=== PATIENT | female | born 1990 | race Caucasian/White ===

== ENCOUNTER 2017-04-21 17:40 | Emergency (ER) | payer BC ==
[2017-04-21 18:10] VITALS: BP 150/96
--- NOTE | 2017-04-21 18:31 | UC ---
Eye Complaint HPI - HPI Summary HPI Summary: Patient presents with complaint of two week onset redness, and irritation of the left eye.It started while she was on a plane, and her eye felt dry and began t fell irritated. She removed her contacts and since then hasn't worn them. She denies eye pain, visual changes, or lid swelling. Due to the fact that is lasted so long she came to have it evaluated. - History of Current Complaint Chief Complaint: UCEye Stated Complaint: EYE IRRITATION Time Seen by Provider: 04/21/17 18:17 Hx Obtained From: Patient Hx Last Menstrual Period: 2 wks ago ?: No Onset/Duration: Gradual Onset Timing: Weeks Severity Initially: Moderate Severity Currently: Moderate Aggravating Factor(s): Light, Contact Lens, Blinking Alleviating Factor(s): Nothing Related History: Other - dry eyes - Risk Factors Penetrating Injury Risk Factor: Negative Acute Glaucoma Risk Factors: Negative Optic Artery Occlusion Risk Factors: Negative - Allergies/Home Medications Allergies/Adverse Reactions: Allergies Allergy/AdvReac Type Severity Reaction Status Date / Time Sulfa Antibiotics Allergy Rash Verified 04/21/17 18:10 Home Medications: Home Medications Control Pill ? Name 04/21/17 [History] PMH/Surg Hx/FS Hx/Imm Hx Previously Healthy: Yes - Surgical History Surgical History: None - Family History Known Family History: Positive: None - Social History Alcohol Use: Occasionally Substance Use Type: None Smoking Status (MU): Never Smoked Tobacco Review of Systems Eyes: Eye Redness - left eye, lateral aspect only. no tearing, drainage, lid swelling note. All Other Systems Reviewed And Are Negative: Yes Physical Exam Triage Information Reviewed: Yes Appearance: Well-Appearing Vital Signs: Initial Vital Signs Temp 97.9 F 04/21/17 18:07 Pulse 78 04/21/17 18:07 Resp 12 04/21/17 18:07 BP 150/96 04/21/17 18:07 Pulse Ox 100 04/21/17 18:07 Vital Signs Reviewed: Yes Eyes: Positive: Other: - left eye:conjunctiva lateral aspect swollen, injected, no tearing, drainage, lid swelling noted. Neck exam: Normal Respiratory Exam: Normal Eye Complaint Course/Dx - Course Course Of Treatment: Patient presents with two week onset left eye redness, and a sensation of dryness and/or irritation. She has removed her contact lenses, and has been putting natural tears in her eyes with no improvment. The clinical findings I feel are consistent with chemosis, and most likely caused from irritation of dry eyes. I am going to RX polymyxin eye drops and have referred her to Dr. Orr for follow up, I have asked her to call tomorrow for an appointment. She verbalized understanding and was in agreement of the discharge plan. - Differential Dx/Diagnosis Differential Diagnosis/HQI/PQRI: Other - chemosis conjunctivitis Provider Diagnoses: chemosis. conjunctivitis Discharge - Discharge Plan Condition: Stable Disposition: HOME Prescriptions: Polymyx/Trimethoprim OPTH* [Polytrim OPHTH*] 1 drop LEFT EYE Q3H #1 btl Patient Education Materials: Conjunctivitis (ED) Referrals: No Primary Care [facility] [Primary Care Provider] - Brett Wen MD [Medical Doctor] -
== END 2017-04-21 18:30 | disposition home or self-care (01) ==
LOC: UCEAST 17:40
DX: H11.422 Conjunctival edema, left eye (principal); H10.9 Unspecified conjunctivitis
CPT/HCPCS: 99212; G0463

== ENCOUNTER 2018-11-05 20:25 | Emergency (ER) | payer BC ==
--- NOTE | 2018-11-05 20:30 | UC ---
Respiratory Complaint HPI - HPI Summary HPI Summary: 28 yo female presents with SOB. She tells me that last night she spontaneously developed shortness of breath and dry coughing. Today is much worse and getting worse throughout the day. Painful to take a deep breath. She also noticed that her heart rate has been elevated (>100). 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 No recent illness, recent travel, smoking, cancer, or hx of blood clots. Denies any PMHx. No hx of asthma. No calf pain. - History of Current Complaint Stated Complaint: SOB Time Seen by Provider: 11/05/18 20:26 Hx Obtained From: Patient Hx Last Menstrual Period: 2 wks ago Onset/Duration: Sudden Onset Severity Currently: None Character: Cough: Nonproductive - Allergies/Home Medications Allergies/Adverse Reactions: Allergies Allergy/AdvReac Type Severity Reaction Status Date / Time Sulfa (Sulfonamide Allergy Rash Verified 11/05/18 20:34 Antibiotics) PMH/Surg Hx/FS Hx/Imm Hx - Additional Past Medical History Additional PMH: None - Surgical History Surgical History: None - Family History Known Family History: Positive: None - Social History Occupation: Employed Full-time Lives: With Family Alcohol Use: Occasionally Substance Use Type: None Smoking Status (MU): Never Smoked Tobacco Review of Systems All Other Systems Reviewed And Are Negative: Yes Constitutional: Positive: Negative Skin: Positive: Negative Eyes: Positive: Negative ENT: Positive: Negative Respiratory: Positive: Shortness Of Breath, Cough Cardiovascular: Positive: Negative Gastrointestinal: Positive: Negative Neurovascular: Positive: Negative Neurological: Positive: Negative Psychological: Positive: Negative Physical Exam - Summary Physical Exam Summary: GENERAL: Thin. Increased work of breathing. SKIN: No rashes, sores, lesions, or open wounds. HEENT: Head: AT/NC Eyes: EOM intact. Conjunctiva clear without inflammation or discharge. Ears: Hearing grossly normal. TMs intact, no bulging, erythema, or edema. Nose: Nasal mucosa pink and moist. NTTP maxillary and frontal sinus. Throat: Posterior oropharynx without exudates, erythema, or tonsillar enlargement. Uvula midline. NECK: Supple. Nontender. No lymphadenopathy. CHEST: CTAB. No r/r/w. Tachypneic. CV: Tachycardic. Without m/r/g. Pulses intact. Cap refill <2seconds NEURO: Alert. PSYCH: Age appropriate behavior. Triage Information Reviewed: Yes Vital Signs: Vital Signs: Temp Pulse Resp BP Pulse Ox 98.2 F 132 30 152/99 99 11/05/18 20:30 11/05/18 20:30 11/05/18 20:30 11/05/18 20:30 11/05/18 20:30 Vital Signs Reviewed: Yes Re-Evaluation - Re-Evaluation First Eval Re-Evaluation Time: 21:08 Change: Unchanged Comment: Unchanged s/p duoneb Respiratory Course/Dx - Course Course Of Treatment: CXR: No radiologist reading after 1800, therefore wet read by myself is negative for PNA or pneumothorax. EKG: Tachycardia with prolonged QT and prominent p waves. No ST changes as read by Dr. Ocampo. Duoneb: No change s/p. Placed on 2L O2 for comfort and no change in rate or work of breathing. Discussed with pt and her my suspicion for a PE at this time. Her only risk factor is her OBC, but her failure of treatment here and her presentation are concerning for such. Advised transfer to ED by ambulance and they were agreeable to this. Pt left in stable condition via EMS. - Differential Dx/Diagnosis Provider Diagnosis: SOB (shortness of breath), Dyspnea, Tachycardia Discharge - Sign-Out/Discharge Documenting (check all that apply): Patient Departure All imaging exams completed and their final reports reviewed: No - Discharge Plan Condition: Stable Disposition: TRANS HIGHER LVL OF CARE FAC Referrals: No Primary Care Phys,NOPCP [Primary Care Provider] - - Billing Disposition and Condition Condition: STABLE Disposition: Trans Higher Lvl of Care Fac
[2018-11-05] MEDS ORDERED: Albuterol/Ipratropium NEB.SOL* Albuterol 2.5 MG/Ipratropium 0.5 MG 3 ML INH ONE (20:32)
[2018-11-05 21:02] VITALS: BP 152/99
[2018-11-05] MEDS ORDERED: Ondansetron ODT TAB* 4 MG SL ONE (21:15)
[2018-11-05] MEDS ORDERED: Ondansetron ODT TAB* 4 MG ONE (21:16)
--- NOTE | 2018-11-06 13:01 | UC ---
- Progress Note Progress Note: CXR READ UNREMARKABLE. NO CHANGE IN MGMT Re-Evaluation - Re-Evaluation First Eval Re-Evaluation Time: 21:08 Change: Unchanged Comment: Unchanged s/p duoneb Course/Dx - Diagnoses Provider Diagnoses: SOB (shortness of breath), Dyspnea, Tachycardia Discharge - Sign-Out/Discharge Documenting (check all that apply): Post-Discharge Follow Up All imaging exams completed and their final reports reviewed: Yes - Discharge Plan Condition: Stable Disposition: TRANS HIGHER LVL OF CARE FAC Referrals: No Primary Care Phys,NOPCP [Primary Care Provider] - - Billing Disposition and Condition Condition: STABLE Disposition: Trans Higher Lvl of Care Fac
== END 2018-11-05 21:25 | disposition short-term general hospital (02) ==
LOC: UCEAST 20:25
DX: R06.02 Shortness of breath (principal); R00.0 Tachycardia, unspecified; Z88.2 Allergy status to sulfonamides
CPT/HCPCS: 71046; 99213; A9270-GY; G0463

== ENCOUNTER 2018-11-05 21:44 | Inpatient (IN) | payer BC ==
[2018-11-05] MEDS ORDERED: Metoclopramide IV* 5 MG/ML 2 ML VIAL IV ONE (22:10)
[2018-11-05] MEDS ORDERED: NS 0.9% 1000 ML** 1,000 ML IV ONE ×2 (22:10→23:06)
[2018-11-05 22:37] LABS: Hematocrit 54 % (35-47); Hemoglobin 17.4 g/dl (12.0-16.0); Mean Corpuscular HGB Conc 32 g/dl (31-36); Mean Corpuscular Hemoglobin 35 pg (27-31); Mean Corpuscular Volume 108 fL (80-97); Platelet Count 325 10^3/ul (150-450); Red Blood Count 5.03 10^6/ul (4.00-5.40); Red Cell Distribution Width 15 % (10.5-15); White Blood Count 14.9 10^3/ul (3.5-10.8)
[2018-11-05 22:45] LABS: INR 0.77 (0.77-1.02)
[2018-11-05 22:47] LABS: ALT 16 U/L (7-52); Albumin/Globulin Ratio 1.6 (1-3); Alkaline Phosphatase 95 U/L (34-104); BUN/Creatinine Ratio 10.1 (8-20); Blood Urea Nitrogen 12 mg/dL (6-24); C Reactive Protein 4.62 mg/L (<8.01); Calcium 8.8 mg/dL (8.6-10.3); Chloride 107 mmol/L (101-111); EGFR African American 65.8 (>60); EGFR Non-African American 54.4 (>60); Globulin 3.2 g/dL (2-4); Glucose 321 mg/dL (70-100); Sodium 134 mmol/L (135-145); Total Protein 8.2 g/dL (6.4-8.9)
[2018-11-05 22:51] LABS: CO2 Carbon Dioxide < 7 mmol/L (22-32)
[2018-11-05 22:53] LABS: HCG Pregnancy < 0.60 mIU/mL
[2018-11-05 23:00] LABS: Immature Granulocytes 4 % (0-9); Lymphocytes % 18 %; Metamyelocytes % 3 % (0-2); Monocytes % 13 %; Myelocytes % 1 % (0-1); Neutrophil % 64 %
[2018-11-05 23:01] LABS: Polychromasia 1+
[2018-11-05 23:02] LABS: ABS Basophils 0 10^3/ul (0-0.2); ABS Eosinophils 0.1 10^3/ul (0-0.6); ABS Lymphocytes 3.2 10^3/ul (1.0-4.8); ABS Monocytes 1.7 10^3/ul (0-0.8); ABS Neutrophils 9.8 10^3/ul (1.5-7.7); ABS Nucleated RBC 0 10^3/ul
[2018-11-05 23:18] LABS: TSH (Thyroid Stimulating Horm) 3.09 mcIU/mL (0.34-5.60)
--- NOTE | 2018-11-05 23:24 | ED ---
Progress - Progress Note Progress Note: Pt is a 28 y/o F. The pt has no PMHx or pertinent FHx. The pt complains of difficulty breathing and nausea for 1.5 days with decreased PO intake. She was found tachypnic and tachycardic in the ED. The pt's bloodwork is consistent with DKA, and her blood sugar is 321. Pt given IV fluids and insulin drip. Pt will not get bolus insulin because his blood sugar is not too elevated. The dx will be DKA and the pt will be admitted to the ICU. Course/Dx - Course Course Of Treatment: Pt is a 28 y/o F. The pt has no PMHx or pertinent FHx. The pt complains of difficulty breathing and nausea for 1.5 days with decreased PO intake. She was found tachypnic and tachycardic in the ED. The pt's bloodwork is consistent with DKA, and her blood sugar is 321. Pt given IV fluids and insulin drip. Pt will not get bolus insulin because his blood sugar is not too elevated. The dx will be DKA and the pt will be admitted to the ICU. - Diagnoses Provider Diagnoses: DKA (diabetic ketoacidoses) Discharge - Sign-Out/Discharge Documenting (check all that apply): Patient Departure - Discharge Plan Condition: Stable Disposition: ADMITTED TO [facility] Referrals: [facility] [Outside] - Attestation Statements Document Initiated by Gemini: Yes Documenting Scribe: Linh Crowley Provider For Whom Gemini is Documenting (Include Credential): Sheryl Calzada MD. Scribe Attestation: Linh Robertson, ernsted for Shreyl Calzada MD. on 11/05/18 at [id number]. Status of Scribe Document: Ready
[2018-11-05] MEDS ORDERED: Insulin IVPB 100 units/100 ml 100 UNITS/100 ML UNIT IVPB SCH (23:45)
[2018-11-05 23:48] LABS: Magnesium 2.1 mg/dL (1.9-2.7); Potassium Redraw 3.7 mmol/L (3.5-5.0)
[2018-11-05] MEDS ORDERED: KCL 10 MEQ/50 ML IVPREMIX* 10 MEQ/50 ML BAG IV ONE (23:51)
[2018-11-05 23:54] LABS: Phosphorus 3.3 mg/dL (2.5-5.0)
[2018-11-06] MEDS ORDERED: NS 0.9% w/ 40 Meq KCL 1000 ML* 1,000 ML IV SCH (01:00)
[2018-11-06] MEDS ORDERED: Insulin IVPB 100 units/100 ml 100 UNITS/100 ML UNIT IVPB SCH ×2 (01:00→01:25)
--- NOTE | 2018-11-06 01:32 | ED ---
Shortness of Breath - HPI Summary HPI Summary: Patient complains of shortness of breath and chest tightness, nasal congestion, frontal headache, persistent nausea with one episode of vomiting 2 days. Patient sent from convenient care for further evaluation for possible PE. Patient chest x-ray negative at convenient care. Nebulizers 2 provided no relief at convenient care. Patient was also given Zofran which helped to control some of the nausea. Patient denies fever, cough, sore throat, neck tightness, abdominal pain, change in urine, vaginal symptoms, change in BM. Medical history is none. Patient taking same OCP 4 years. Denies history of blood clots, recent history of long travel, , cancer, recent immobility , recent surgery or trauma. Nonsmoker. Denies EtOH and recreational drug use. - History of Current Complaint Chief Complaint: EDShortnessOfBreath Time Seen by Provider: 11/05/18 21:53 Hx Obtained From: Patient Onset/Duration: Gradual Onset, Lasting Days Current Severity: Moderate Alleviating Factors: Nothing Associated Signs & Symptoms: Nasal Congestion - Allergy/Home Medications Allergies/Adverse Reactions: Allergies Allergy/AdvReac Type Severity Reaction Status Date / Time Sulfa (Sulfonamide Allergy Rash Verified 11/05/18 20:34 Antibiotics) PMH/Surg Hx/FS Hx/Imm Hx Endocrine/Hematology History: Denies: Hx Anticoagulant Therapy Cardiovascular History: Denies: Hx Cardiac Arrest History: Denies: Hx Dialysis Musculoskeletal History: Denies: Hx Gout Sensory History: Denies: Hx Eye Injury Opthamlomology History: Denies: Hx Eye Prosthesis EENT History: Denies: Hx Deafness Neurological History: Denies: Hx Dementia Psychiatric History: Denies: Hx Autism Infectious Disease History: No Infectious Disease History: Denies: Traveled Outside the [place] in Last 30 Days - Family History Known Family History: Positive: None - Social History Alcohol Use: Occasionally Substance Use Type: Reports: None Smoking Status (MU): Never Smoked Tobacco Review of Systems Constitutional: Negative Eyes: Negative ENT: Negative Positive: Chest Pain Positive: Shortness Of Breath Positive: Vomiting, Nausea Genitourinary: Negative Musculoskeletal: Negative Skin: Negative Neurological: Negative Psychological: Normal All Other Systems Reviewed And Are Negative: Yes Physical Exam - Summary Physical Exam Summary: Patient tachycardic. Patient hyperventilating. Lung sounds clear to auscultation bilaterally. Abdomen soft nontender. Triage Information Reviewed: Yes Vital Signs On Initial Exam: Initial Vitals Resp 28 11/05/18 21:45 Vital Signs Reviewed: Yes Appearance: Positive: Well-Appearing Head/Face: Positive: Normal Head/Face Inspection Eyes: Positive: Normal ENT: Positive: Normal ENT inspection Neck: Positive: Supple Respiratory/Lung Sounds: Positive: Clear to Auscultation Cardiovascular: Positive: Tachycardia Abdomen Description: Positive: Nontender Musculoskeletal: Positive: Normal Neurological: Positive: Normal Psychiatric: Positive: Normal AVPU Assessment: Alert - Phoebe Coma Scale Best Eye Response: 4 - Spontaneous Best Motor Response: 6 - Obeys Commands Best Verbal Response: 5 - Oriented Coma Scale Total: 15 Diagnostics - Vital Signs Vital Signs Temp Pulse Resp BP Pulse Ox 11/06/18 00:28 109 28 100 11/06/18 00:17 106 26 154/104 100 11/06/18 00:00 110 22 100 11/05/18 23:47 106 28 155/101 100 11/05/18 23:17 115 27 166/115 100 11/05/18 23:00 112 39 100 11/05/18 22:47 121 27 147/107 85 11/05/18 22:23 111 26 159/116 100 11/05/18 22:00 113 50 100 11/05/18 21:59 111 100 11/05/18 21:50 97.9 F 116 28 172/120 99 11/05/18 21:47 112 172/120 100 11/05/18 21:45 28 - Laboratory Lab Results: Lab Results 11/05/18 11/05/18 11/05/18 Range/Units 21:57 22:19 22:20 WBC 14.9 H (3.5-10.8) 10^3/ul RBC 5.03 (4.00-5.40) 10^6/ul Hgb 17.4 H (12.0-16.0) g/dl Hct 54 H (35-47) % MCV 108 H (80-97) fL MCH 35 H (27-31) pg MCHC 32 (31-36) g/dl RDW 15 (10.5-15) % Plt Count 325 (150-450) 10^3/ul MPV 7.0 L (7.4-10.4) fL Neut % (Auto) Not Reportable Lymph % (Auto) Not Reportable Hinds % (Auto) Not Reportable Eos % (Auto) Not Reportable Baso % (Auto) Not Reportable Absolute Neuts (auto) 9.8 H (1.5-7.7) 10^3/ul Absolute Lymphs (auto) 3.2 (1.0-4.8) 10^3/ul Absolute Monos (auto) 1.7 H (0-0.8) 10^3/ul Absolute Eos (auto) 0.1 (0-0.6) 10^3/ul Absolute Basos (auto) 0 (0-0.2) 10^3/ul Absolute Nucleated RBC 0 10^3/ul Immature Gran % 4 (0-9) % Neutrophils % 64 % Lymphocytes % 18 % Monocytes % 13 % Basophils % 1 % Metamyelocytes % 3 H (0-2) % Myelocytes % 1 (0-1) % Nucleated RBC % Not Reportable Normal RBC Morphology Not Reportable Polychromasia 1+ INR (Anticoag Therapy) 0.77 (0.77-1.02) D-Dimer, Quantitative 336 H (Less Than 230) ng/mL ABG pH (7.35-7.45) ABG pCO2 (35-45) mmHg ABG pO2 (80-100) mmHg ABG HCO3 ABG O2 Saturation (94.0-98.0) % ABG Base Excess VBG pH (7.32-7.43) VBG pCO2 (41-51) mmHg VBG pO2 (35-45) mmHg VBG HCO3 VBG O2 Saturation (70-80) % VBG Base Excess Sodium (135-145) mmol/L Potassium Chloride (101-111) mmol/L Carbon Dioxide (22-32) mmol/L Anion Gap BUN (6-24) mg/dL Creatinine (0.51-0.95) mg/dL Est GFR ( Amer) (>60) Est GFR (Non-Af Amer) (>60) BUN/Creatinine Ratio (8-20) Glucose (70-100) mg/dL POC Glucose (mg/dL) 271 H (70-100) mg/dL Lactic Acid (0.5-2.0) mmol/L Calcium (8.6-10.3) mg/dL Phosphorus (2.5-5.0) mg/dL Magnesium (1.9-2.7) mg/dL Total Bilirubin (0.2-1.0) mg/dL AST ALT (7-52) U/L Alkaline Phosphatase (34-104) U/L Troponin I (<0.04) ng/mL C-Reactive Protein (<8.01) mg/L Total Protein (6.4-8.9) g/dL Albumin (3.2-5.2) g/dL Globulin (2-4) g/dL Albumin/Globulin Ratio (1-3) TSH (0.34-5.60) mcIU/mL Beta HCG, Quant mIU/mL 11/05/18 11/05/18 11/05/18 Range/Units 22:20 22:20 22:20 WBC (3.5-10.8) 10^3/ul RBC (4.00-5.40) 10^6/ul Hgb (12.0-16.0) g/dl Hct (35-47) % MCV (80-97) fL MCH (27-31) pg MCHC (31-36) g/dl RDW (10.5-15) % Plt Count (150-450) 10^3/ul MPV (7.4-10.4) fL Neut % (Auto) Lymph % (Auto) Hinds % (Auto) Eos % (Auto) Baso % (Auto) Absolute Neuts (auto) (1.5-7.7) 10^3/ul Absolute Lymphs (auto) (1.0-4.8) 10^3/ul Absolute Monos (auto) (0-0.8) 10^3/ul Absolute Eos (auto) (0-0.6) 10^3/ul Absolute Basos (auto) (0-0.2) 10^3/ul Absolute Nucleated RBC 10^3/ul Immature Gran % (0-9) % Neutrophils % % Lymphocytes % % Monocytes % % Basophils % % Metamyelocytes % (0-2) % Myelocytes % (0-1) % Nucleated RBC % Normal RBC Morphology Polychromasia INR (Anticoag Therapy) (0.77-1.02) D-Dimer, Quantitative (Less Than 230) ng/mL ABG pH (7.35-7.45) ABG pCO2 (35-45) mmHg ABG pO2 (80-100) mmHg ABG HCO3 ABG O2 Saturation (94.0-98.0) % ABG Base Excess VBG pH < 7.00 L (7.32-7.43) VBG pCO2 29 L (41-51) mmHg VBG pO2 < 38.0 (35-45) mmHg VBG HCO3 TNP VBG O2 Saturation 56.3 L (70-80) % VBG Base Excess TNP Sodium 134 L (135-145) mmol/L Potassium TNP Chloride 107 (101-111) mmol/L Carbon Dioxide < 7 L* (22-32) mmol/L Anion Gap Not Reportable BUN 12 (6-24) mg/dL Creatinine 1.19 H (0.51-0.95) mg/dL Est GFR ( Amer) 65.8 (>60) Est GFR (Non-Af Amer) 54.4 (>60) BUN/Creatinine Ratio 10.1 (8-20) Glucose 321 H (70-100) mg/dL POC Glucose (mg/dL) (70-100) mg/dL Lactic Acid 0.6 (0.5-2.0) mmol/L Calcium 8.8 (8.6-10.3) mg/dL Phosphorus (2.5-5.0) mg/dL Magnesium (1.9-2.7) mg/dL Total Bilirubin 0.40 (0.2-1.0) mg/dL AST TNP ALT 16 (7-52) U/L Alkaline Phosphatase 95 (34-104) U/L Troponin I 0.00 (<0.04) ng/mL C-Reactive Protein 4.62 (<8.01) mg/L Total Protein 8.2 (6.4-8.9) g/dL Albumin 5.0 (3.2-5.2) g/dL Globulin 3.2 (2-4) g/dL Albumin/Globulin Ratio 1.6 (1-3) TSH 3.09 (0.34-5.60) mcIU/mL Beta HCG, Quant < 0.60 mIU/mL 11/05/18 11/05/18 11/05/18 Range/Units 23:14 23:25 23:56 WBC (3.5-10.8) 10^3/ul RBC (4.00-5.40) 10^6/ul Hgb (12.0-16.0) g/dl Hct (35-47) % MCV (80-97) fL MCH (27-31) pg MCHC (31-36) g/dl RDW (10.5-15) % Plt Count (150-450) 10^3/ul MPV (7.4-10.4) fL Neut % (Auto) Lymph % (Auto) Hinds % (Auto) Eos % (Auto) Baso % (Auto) Absolute Neuts (auto) (1.5-7.7) 10^3/ul Absolute Lymphs (auto) (1.0-4.8) 10^3/ul Absolute Monos (auto) (0-0.8) 10^3/ul Absolute Eos (auto) (0-0.6) 10^3/ul Absolute Basos (auto) (0-0.2) 10^3/ul Absolute Nucleated RBC 10^3/ul Immature Gran % (0-9) % Neutrophils % % Lymphocytes % % Monocytes % % Basophils % % Metamyelocytes % (0-2) % Myelocytes % (0-1) % Nucleated RBC % Normal RBC Morphology Polychromasia INR (Anticoag Therapy) (0.77-1.02) D-Dimer, Quantitative (Less Than 230) ng/mL ABG pH < 7.00 L* (7.35-7.45) ABG pCO2 < 20 L (35-45) mmHg ABG pO2 160 H (80-100) mmHg ABG HCO3 TNP ABG O2 Saturation 98.9 H (94.0-98.0) % ABG Base Excess TNP VBG pH (7.32-7.43) VBG pCO2 (41-51) mmHg VBG pO2 (35-45) mmHg VBG HCO3 VBG O2 Saturation (70-80) % VBG Base Excess Sodium (135-145) mmol/L Potassium 3.7 Chloride (101-111) mmol/L Carbon Dioxide (22-32) mmol/L Anion Gap BUN (6-24) mg/dL Creatinine (0.51-0.95) mg/dL Est GFR ( Amer) (>60) Est GFR (Non-Af Amer) (>60) BUN/Creatinine Ratio (8-20) Glucose (70-100) mg/dL POC Glucose (mg/dL) 278 H (70-100) mg/dL Lactic Acid (0.5-2.0) mmol/L Calcium (8.6-10.3) mg/dL Phosphorus 3.3 (2.5-5.0) mg/dL Magnesium 2.1 (1.9-2.7) mg/dL Total Bilirubin (0.2-1.0) mg/dL AST 14 ALT (7-52) U/L Alkaline Phosphatase (34-104) U/L Troponin I 0.00 (<0.04) ng/mL C-Reactive Protein (<8.01) mg/L Total Protein (6.4-8.9) g/dL Albumin (3.2-5.2) g/dL Globulin (2-4) g/dL Albumin/Globulin Ratio (1-3) TSH (0.34-5.60) mcIU/mL Beta HCG, Quant mIU/mL Result Diagrams: 11/05/18 22:20 11/05/18 23:14 Lab Statement: Any lab studies that have been ordered have been reviewed, and results considered in the medical decision making process. Course/Dx - Course Course Of Treatment: Patient complains of shortness of breath and chest tightness, nasal congestion, frontal headache, persistent nausea with one episode of vomiting 2 days. Patient sent from convenient care for further evaluation for possible PE. Patient chest x-ray negative at convenient care. Nebulizers 2 provided no relief at convenient care. Patient was also given Zofran which helped to control some of the nausea. Patient denies fever, cough , sore throat, neck tightness, abdominal pain, change in urine, vaginal symptoms , change in BM. Medical history is none. Patient taking same OCP 4 years. Denies history of blood clots, recent history of long travel, , cancer , recent immobility, recent surgery or trauma. Nonsmoker. Denies EtOH and recreational drug use. Physical exam:Patient tachycardic. Patient hyperventilating. Lung sounds clear to auscultation bilaterally. Abdomen soft nontender. Patient tachycardic and tachypneic. WBC 14.9. D-dimer 336, however shortness of breath likely related to DKA rather than possible PE. CTA chest deferred. ABG pH less than 7. Carbon dioxide less than 7. BGL 321. Heart rate 116. Respiratory rate 25. Denies history of diabetes. Chest x-ray negative and convenient care. Pt is a 28 y/o F. The pt has no PMHx or pertinent FHx. The pt complains of difficulty breathing and nausea for 1.5 days with decreased PO intake. She was found tachypnic and tachycardic in the ED. The pt's bloodwork is consistent with DKA, and her blood sugar is 321. Pt given IV fluids and insulin drip. Pt will not get bolus insulin because his blood sugar is not too elevated. The dx will be DKA and the pt will be admitted to the ICU. - Diagnoses Provider Diagnoses: DKA (diabetic ketoacidoses) Discharge - Sign-Out/Discharge Documenting (check all that apply): Patient Departure Patient Received Moderate/Deep Sedation with Procedure: No - Discharge Plan Condition: Stable Disposition: ADMITTED TO [facility] - Billing Disposition and Condition Condition: STABLE Disposition: Admitted to [facility]
--- NOTE | 2018-11-06 02:24 | ADMNOTE ---
Subjective Date of Service: 11/06/18 Interval History: HISTORY AND PHYSICAL PCP: Georgie CC: dyspnea HPI: Patient is 28 year old with no PMH who was feeling well until after work about 36 hours [employer]. At that time, she felt short of breath. The dyspnea has progressed over the next 36 hours. In the last 24 hours she has had polyuria, polydipsia. She reports slow weight loss over the last 2 years, nothing acute. She feels fatigued, vomited once this morning. Denies fever, abdominal pain, dysuria. Family History: Findings - father with HTN, cousing w/ DM-1 Social History: Findings - , no children, works as PT at [employer] [place], no tobacco , rare alcohol, no drugs Past Medical History: Findings - No PMH, no PSH Review of Systems - Measurements Intake and Output: Intake and Output Last 24 Hours 11/03/18 11/04/18 11/05/18 11/06/18 06:59 06:59 06:59 06:59 Intake Total 1050 Balance 1050 Weight 58.967 kg Intake: IV Fluids 1050 - Review of Systems Constitutional Symptoms: Positive: Weight Loss, Fatigue Dermatology: Positive: Normal HEENT: Positive: Normal Eyes: Positive: Normal Thyroid: Positive: Normal Pulmonary: Positive: Shortness of Breath Negative: Cough Cardiology: Positive: Normal Negative: Edema Gastroenterology: Positive: Nausea, Vomiting Negative: Anorexia Genital - Urinary: Positive: Normal Genitourinay - Female: Positive: Menses Normal Musculoskeletal: Negative: Joint Pain Endocrinology: Positive: Normal Hematologic/Lymphatic: Positive: Anemia Neurology: Positive: Normal Psychiatry: Positive: Normal Objective Active Medications: Home medications: OCP only Vital Signs - 8 hr 11/05/18 11/05/18 11/05/18 21:45 21:47 21:50 Temperature 36.6 C Pulse Rate 112 116 Respiratory 28 28 Rate Blood Pressure 172/120 172/120 (mmHg) O2 Sat by Pulse 100 99 Oximetry 11/05/18 11/05/18 11/05/18 21:59 22:00 22:23 Temperature Pulse Rate 111 113 111 Respiratory 50 26 Rate Blood Pressure 159/116 (mmHg) O2 Sat by Pulse 100 100 100 Oximetry 11/05/18 11/05/18 11/05/18 22:47 23:00 23:17 Temperature Pulse Rate 121 112 115 Respiratory 27 39 27 Rate Blood Pressure 147/107 166/115 (mmHg) O2 Sat by Pulse 85 100 100 Oximetry 11/05/18 11/06/18 11/06/18 23:47 00:00 00:17 Temperature Pulse Rate 106 110 106 Respiratory 28 22 26 Rate Blood Pressure 155/101 154/104 (mmHg) O2 Sat by Pulse 100 100 100 Oximetry 11/06/18 11/06/18 11/06/18 00:28 00:47 01:00 Temperature Pulse Rate 109 103 103 Respiratory 28 20 22 Rate Blood Pressure 143/100 (mmHg) O2 Sat by Pulse 100 100 100 Oximetry Oxygen Devices in Use Now: Nasal Cannula Appearance: alert, weak appearing, Kussmaul breathing Eyes: No Scleral Icterus Ears/Nose/Mouth/Throat: NL Teeth, Lips, Gums Neck: NL Appearance and Movements; NL JVP Respiratory: Symmetrical Chest Expansion and Respiratory Effort, Clear to Auscultation Cardiovascular: NL Sounds; No Murmurs; No JVD Abdominal: NL Sounds; No Tenderness; No Distention Lymphatic: No Cervical Adenopathy Extremities: No Edema Skin: No Rash or Ulcers Neurological: Alert and Oriented x 3 Lines/Tubes/Other Access: Clean, Dry and Intact Peripheral IV Nutrition: Taking PO's Result Diagrams: 11/05/18 22:20 11/05/18 23:14 Additional Lab and Data: Laboratory Tests 11/05/18 11/05/18 11/05/18 22:19 22:20 22:20 Absolute Neuts (auto) 9.8 H Absolute Monos (auto) 1.7 H Metamyelocytes % 3 H INR (Anticoag Therapy) 0.77 D-Dimer, Quantitative 336 H ABG pH ABG pCO2 ABG pO2 ABG HCO3 ABG O2 Saturation Lactic Acid Phosphorus Magnesium Troponin I 0.00 C-Reactive Protein 4.62 Total Protein 8.2 Albumin 5.0 TSH 3.09 Beta HCG, Quant < 0.60 11/05/18 11/05/18 11/05/18 22:20 23:14 23:25 Absolute Neuts (auto) Absolute Monos (auto) Metamyelocytes % INR (Anticoag Therapy) D-Dimer, Quantitative ABG pH < 7.00 L* ABG pCO2 < 20 L ABG pO2 160 H ABG HCO3 TNP ABG O2 Saturation 98.9 H Lactic Acid 0.6 Phosphorus 3.3 Magnesium 2.1 Troponin I C-Reactive Protein Total Protein Albumin TSH Beta HCG, Quant Diagnostic Imaging: CXR: normal EKG Data: sinus tachy Assess/Plan/Problems-Billing Assessment: 28 year old with new onset Type 1 diabetes and DKA. - Patient Problems (1) Diabetic ketoacidosis, type I Current Visit: Yes Status: Acute Priority: High Code(s): E10.10 - TYPE 1 DIABETES MELLITUS WITH KETOACIDOSIS WITHOUT COMA SNOMED Code(s): 077645508 Comment: -Patient admitted to ICU on insulin drip -Will titrate insulin drip to FS in 150-250 range -Check FS every hour, BMP q4h -Add D5 once FS <250 -potassium already low, may lower further, aggressively supplemented -check UA once she voids, assess for resolution of ketones -Aggressive hydration, patient is very volume depleted (2) DVT prophylaxis Current Visit: Yes Status: Acute Priority: Low Code(s): IMJ7354 - SNOMED Code(s): 587115670 Comment: -low risk -SCDs Status and Disposition: inpatient, initially in ICU
[2018-11-06] MEDS: D5W NS 0.9% 20Meq KCL 1000 ML* 1,000 ML IV SCH ×2 (02:58→06:07)
[2018-11-06 03:04] LABS: BUN/Creatinine Ratio 12.4 (8-20); Blood Urea Nitrogen 13 mg/dL (6-24); Calcium 7.6 mg/dL (8.6-10.3); EGFR African American 76.1 (>60); EGFR Non-African American 62.9 (>60); Glucose 243 mg/dL (70-100); Sodium 134 mmol/L (135-145)
[2018-11-06 03:07] LABS: CO2 Carbon Dioxide < 7 mmol/L (22-32); Chloride 113 mmol/L (101-111)
[2018-11-06 04:32] LABS: Urine Appearance Clear; Urine Bacteria 1+ (Absent); Urine Bilirubin Negative (Negative); Urine Blood 2+ (Negative); Urine Color Straw; Urine Glucose 3+(>=500 mg/dL) (Negative); Urine Ketones 2+ (Negative); Urine Nitrite Negative (Negative); Urine Protein 1+(30 mg/dL) (Negative); Urine Red Blood Cell 3+(>10/hpf) (Absent); Urine Urobilinogen Negative (Negative); Urine White Blood Cell Absent (Absent)
[2018-11-06] MEDS: Ibuprofen TAB* 400 MG PO PRN ×2 (04:55→12:29)
[2018-11-06 06:33] LABS: Hematocrit 49 % (35-47); Hemoglobin 16.2 g/dl (12.0-16.0); Mean Corpuscular HGB Conc 33 g/dl (31-36); Mean Corpuscular Hemoglobin 34 pg (27-31); Mean Corpuscular Volume 105 fL (80-97); Platelet Count 228 10^3/ul (150-450); Red Blood Count 4.69 10^6/ul (4.00-5.40); Red Cell Distribution Width 14 % (10.5-15); White Blood Count 14.6 10^3/ul (3.5-10.8)
[2018-11-06 07:27] LABS: Lymphocytes % 14 %; Metamyelocytes % 2 % (0-2); Monocytes % 6 %; Neutrophil % 76 %
[2018-11-06 07:28] LABS: Immature Granulocytes 4 % (0-9)
[2018-11-06 07:29] LABS: ABS Neutrophils 11.7 10^3/ul (1.5-7.7)
[2018-11-06 08:16] LABS: BUN/Creatinine Ratio 11.2 (8-20); Blood Urea Nitrogen 11 mg/dL (6-24); Calcium 7.8 mg/dL (8.6-10.3); EGFR African American 82.4 (>60); EGFR Non-African American 68.1 (>60); Glucose 312 mg/dL (70-100); Potassium 4.1 mmol/L (3.5-5.0); Sodium 135 mmol/L (135-145)
[2018-11-06 08:21] LABS: CO2 Carbon Dioxide < 7 mmol/L (22-32); Chloride 115 mmol/L (101-111)
--- NOTE | 2018-11-06 08:55 | PN ---
Subjective Date of Service: 11/06/18 Interval History: Less SOB. Hungry. No pain, no new c/o. Family History: Findings - father with HTN, cousing w/ DM-1 Social History: Findings - , no children, works as PT at [employer] [place], no tobacco , rare alcohol, no drugs Past Medical History: Findings - No PMH, no PSH Objective Active Medications: Insulin Human Regular (Insulin Regular Iv Drip 1 Unit/Ml) 100 units in 100 mls @ 4.128 mls/hr IVPB .(as Initial Rate) [facility]; Protocol Last Admin: 11/06/18 02:58 Dose: 4.128 mls/hr Potassium Chloride/Dextrose (D5w Ns 0.9% 20meq Kcl 1000 Ml*) 1,000 mls @ 300 mls/hr IV PER RATE [facility] Last Admin: 11/06/18 06:07 Dose: 300 mls/hr Ibuprofen (Motrin Tab*) 400 mg PO Q6H PRN PRN Reason: HEADACHE/DISCOMFORT Last Admin: 11/06/18 04:55 Dose: 400 mg Vital Signs - 8 hr 11/06/18 11/06/18 11/06/18 01:00 01:17 01:55 Temperature Pulse Rate 103 109 Respiratory 22 24 24 Rate Blood Pressure 165/118 155/112 (mmHg) O2 Sat by Pulse 100 100 Oximetry 11/06/18 11/06/18 11/06/18 02:00 02:15 02:19 Temperature 96.4 F 97.4 F Pulse Rate 108 111 104 Respiratory 25 22 28 Rate Blood Pressure 157/108 159/110 165/118 (mmHg) O2 Sat by Pulse 100 100 100 Oximetry 11/06/18 11/06/18 11/06/18 02:30 02:45 03:00 Temperature Pulse Rate 104 104 103 Respiratory 25 25 23 Rate Blood Pressure 148/106 143/107 150/107 (mmHg) O2 Sat by Pulse 100 100 100 Oximetry 11/06/18 11/06/18 11/06/18 03:15 03:30 03:45 Temperature Pulse Rate 108 112 104 Respiratory 24 23 25 Rate Blood Pressure 147/105 141/109 139/96 (mmHg) O2 Sat by Pulse 100 100 100 Oximetry 11/06/18 11/06/18 11/06/18 04:00 04:15 04:30 Temperature 97.7 F Pulse Rate 105 113 106 Respiratory 21 18 23 Rate Blood Pressure 131/104 143/98 127/81 (mmHg) O2 Sat by Pulse 100 100 100 Oximetry 11/06/18 11/06/18 11/06/18 04:45 05:00 05:15 Temperature Pulse Rate 106 105 102 Respiratory 22 27 21 Rate Blood Pressure 124/92 138/90 122/88 (mmHg) O2 Sat by Pulse 100 100 100 Oximetry 11/06/18 11/06/18 11/06/18 05:30 05:45 06:00 Temperature Pulse Rate 105 100 101 Respiratory 26 34 30 Rate Blood Pressure 122/93 129/91 128/85 (mmHg) O2 Sat by Pulse 100 100 100 Oximetry 11/06/18 11/06/18 11/06/18 06:24 06:30 06:45 Temperature Pulse Rate 106 107 100 Respiratory 37 17 17 Rate Blood Pressure 130/88 128/82 118/84 (mmHg) O2 Sat by Pulse 100 100 99 Oximetry 11/06/18 11/06/18 11/06/18 07:00 07:01 07:15 Temperature Pulse Rate 95 96 90 Respiratory 20 19 22 Rate Blood Pressure 123/92 123/89 (mmHg) O2 Sat by Pulse 100 100 100 Oximetry 11/06/18 11/06/18 11/06/18 07:30 08:00 08:01 Temperature Pulse Rate 89 90 90 Respiratory 16 22 21 Rate Blood Pressure 117/88 121/92 (mmHg) O2 Sat by Pulse 100 98 100 Oximetry Oxygen Devices in Use Now: Nasal Cannula Appearance: Alert, partly up in ICU bed. In good spirits. Somewhat tachypneic at rest but otherwise looks comfortable. Eyes: No Scleral Icterus Respiratory: Symmetrical Chest Expansion and Respiratory Effort, Clear to Percussion, - - somewhat tachypneic in bed Cardiovascular: NL Sounds; No Murmurs; No JVD, RRR, No Edema, - Extremities: No Edema, No Clubbing, Cyanosis Skin: No Rash or Ulcers, No Nodules or Sclerosis Neurological: Alert and Oriented x 3, NL Sensation Result Diagrams: 11/06/18 06:24 11/06/18 06:24 Additional Lab and Data: Laboratory Tests 11/05/18 11/05/18 11/05/18 22:19 22:20 22:20 Absolute Neuts (auto) 9.8 H Absolute Monos (auto) 1.7 H Metamyelocytes % 3 H INR (Anticoag Therapy) 0.77 D-Dimer, Quantitative 336 H ABG pH ABG pCO2 ABG pO2 ABG HCO3 ABG O2 Saturation Lactic Acid Phosphorus Magnesium Troponin I 0.00 C-Reactive Protein 4.62 Total Protein 8.2 Albumin 5.0 TSH 3.09 Beta HCG, Quant < 0.60 11/05/18 11/05/18 11/05/18 22:20 23:14 23:25 Absolute Neuts (auto) Absolute Monos (auto) Metamyelocytes % INR (Anticoag Therapy) D-Dimer, Quantitative ABG pH < 7.00 L* ABG pCO2 < 20 L ABG pO2 160 H ABG HCO3 TNP ABG O2 Saturation 98.9 H Lactic Acid 0.6 Phosphorus 3.3 Magnesium 2.1 Troponin I C-Reactive Protein Total Protein Albumin TSH Beta HCG, Quant Microbiology and Other Data: Microbiology 11/05/18 23:03 Aerobic Blood Culture - Final Blood Venous Not Reportable Anaerobic Blood Culture - Final Not Reportable 11/06/18 02:39 Nasal Screen MRSA (PCR) - Final Nasal Mrsa Not Detected Diagnostic Imaging: CXR: normal EKG Data: sinus tachy Assess/Plan/Problems-Billing Assessment: 28 year old with new onset Type 1 diabetes and DKA. - Patient Problems (1) Diabetic ketoacidosis, type I Current Visit: Yes Status: Acute Priority: High Code(s): E10.10 - TYPE 1 DIABETES MELLITUS WITH KETOACIDOSIS WITHOUT COMA SNOMED Code(s): 178995722 Comment: -Patient admitted to ICU on insulin drip -Will titrate insulin drip to FS in 150-250 range -Check FS every hour, BMP q4h -Add D5 once FS <250 Repeat phosphorus level pending. Diabetic education & endo consult requested. -check UA once she voids, assess for resolution of ketones -Aggressive hydration, patient is very volume depleted Status and Disposition: inpatient, initially in ICU
[2018-11-06 09:49] LABS: BUN/Creatinine Ratio 10.3 (8-20); Blood Urea Nitrogen 11 mg/dL (6-24); Calcium 7.8 mg/dL (8.6-10.3); EGFR African American 74.4 (>60); EGFR Non-African American 61.5 (>60); Glucose 307 mg/dL (70-100); Phosphorus 1.7 mg/dL (2.5-5.0); Potassium 3.8 mmol/L (3.5-5.0); Sodium 136 mmol/L (135-145)
[2018-11-06 09:57] LABS: CO2 Carbon Dioxide < 7 mmol/L (22-32); Chloride 116 mmol/L (101-111)
[2018-11-06] MEDS ORDERED: D5W IVPB SCH (11:00)
[2018-11-06] MEDS ORDERED: POTASSIUM PHOSPHATE IVPB SCH (11:00)
[2018-11-06] MEDS ORDERED: 1/2 NS IVPB SCH (11:00)
--- NOTE | 2018-11-06 13:17 | CONSULT ---
Consult Consult: [facility] Inpatient Consult Note Date of Consult: 11/06/18 Reason for Consult: new-onset diabetes Reason for Admission: DKA ASSESSMENT: 28 yo F with new-onset diabetes presenting with acute DKA. Her clinical syndrome is consistent with insulin-deficient type 1 diabetes that she has attempted to manage with diet for the past 6-12 months and only became clinically apparent when she attempted to follow a ketogenic diet. Her admission blood glucose levels are discordant with the severity of her clinical status. Based on IV insulin results in the past 24 hours, her insulin requirement appears high at >80 units/day of 1.5 units/kg/day. Her predicted insulin requirement is only 0.6 units/kg/day, however. She remains acidotic *without* anion gap, although the reasons for this are not immediately clear. I recommend starting SQ insulin with meals on a carbohydrate-based dosing schedule now that she is eating. PLAN: - d/c dextrose IVF - check BMP Q12H - continue IV insulin per ICU protocol until HCO3>18 - when ready to transition from IV to SQ insulin: - start Lantus 20 units SQ 2 hours before stopping IV insulin - start carbohydrate-based insulin dosing 1 unit per 15g carb (in addition to IV insulin) - check GAD65 and C-peptide this admission SUBJECTIVE: History of Present Illness: 28 yo F with no PMH, now presenting with acute dyspnea, nausea and malaise for the past 3 days, found to have profound acidosis and hyperglycemia in ED, now admitted for newly-recognized diabetes and DKA. She noted dyspnea after going to the gym on the day prior to admission with her . She had been working for several days before this and had noted some fatigue. She had changed from a low-carb (paleo) diet and She has lost weight over the past 6-12 months, at least 10 lbs according to her and up to 20 lbs according to her mother. Past Medical History: Medications Prior to Admission: none, no supplements Inpatient Medications: Insulin Human Regular (Insulin Regular Iv Drip 1 Unit/Ml) 100 units in 100 mls @ 4.128 mls/hr IVPB .(as Initial Rate) [facility]; Protocol Last Admin: 11/06/18 02:58 Dose: 4.128 mls/hr Potassium Phosphate 40 mmole/ (Dextrose/Sodium Chloride) 1,013.3333 mls @ 150 mls/hr IVPB Q6H STEFANIE Last Admin: 11/06/18 10:20 Dose: 150 mls/hr Ibuprofen (Motrin Tab*) 400 mg PO Q6H PRN PRN Reason: HEADACHE/DISCOMFORT Last Admin: 11/06/18 12:29 Dose: 400 mg ( Control Pill (? Name 1 Tab)) 1 tab PO DAILY STEFANIE Allergies/Intolerances: sulfa Social History: Lives with . Works as PT. From [employer]. No alcohol, drugs, tobacco. Family History: T1DM in MGF and 2 maternal cousins. Review of Systems: As above. 10 system review is negative. OBJECTIVE: Temp Pulse Resp BP Pulse Ox 99.7 F 96 13 117/71 98 11/06/18 12:00 11/06/18 13:01 11/06/18 13:01 11/06/18 13:00 11/06/18 13:01 General: alert, pleasant, oriented, no distress ENT: neck supple, no thyromegaly, no bruit is heard Chest: CTAB, no wheezing or crackles CV: RRR, no murmur Abdomen: soft, non-tender Extremities: no edema, distal pulses intact Skin: warm, dry, no rash Neuro: grossly intact motor/sensory in extremities Psych: restricted affect, pleasant Labs: WBC 14.6 10^3/ul (3.5-10.8) H 11/06/18 06:24 RBC 4.69 10^6/ul (4.00-5.40) 11/06/18 06:24 Hgb 16.2 g/dl (12.0-16.0) H 11/06/18 06:24 Hct 49 % (35-47) H 11/06/18 06:24 MCV 105 fL (80-97) H 11/06/18 06:24 MCH 34 pg (27-31) H 11/06/18 06:24 MCHC 33 g/dl (31-36) 11/06/18 06:24 RDW 14 % (10.5-15) 11/06/18 06:24 Plt Count 228 10^3/ul (150-450) 11/06/18 06:24 MPV 7.0 fL (7.4-10.4) L 11/06/18 06:24 Neut % (Auto) Not Reportable 11/06/18 06:24 Lymph % (Auto) Not Reportable 11/06/18 06:24 [place] % (Auto) Not Reportable 11/06/18 06:24 Eos % (Auto) Not Reportable 11/06/18 06:24 Baso % (Auto) Not Reportable 11/06/18 06:24 Absolute Neuts (auto) Not Reportable 11/06/18 06:24 Absolute Lymphs (auto) Not Reportable 11/06/18 06:24 Absolute Monos (auto) Not Reportable 11/06/18 06:24 Absolute Eos (auto) Not Reportable 11/06/18 06:24 Absolute Basos (auto) Not Reportable 11/06/18 06:24 Absolute Nucleated RBC Not Reportable 11/06/18 06:24 Immature Gran % 4 % (0-9) 11/06/18 06:24 Neutrophils % 76 % 11/06/18 06:24 Band Neutrophils % 2 % (0-8) 11/06/18 06:24 Lymphocytes % 14 % 11/06/18 06:24 Monocytes % 6 % 11/06/18 06:24 Basophils % 1 % 11/05/18 22:20 Metamyelocytes % 2 % (0-2) 11/06/18 06:24 Myelocytes % 1 % (0-1) 11/05/18 22:20 Nucleated RBC % Not Reportable 11/06/18 06:24 Abs Neuts (Manual) 11.7 10^3/ul (1.5-7.7) H 11/06/18 06:24 Abs Lymphs (Manual) 2.0 10^3/ul (1.0-4.8) 11/06/18 06:24 Abs Monocytes (Manual) 0.9 10^3/ul (0-0.8) H 11/06/18 06:24 Normal RBC Morphology Normal (Normal) 11/06/18 06:24 Polychromasia 1+ 11/05/18 22:20 INR (Anticoag Therapy) 0.77 (0.77-1.02) 11/05/18 22:19 D-Dimer, Quantitative 336 ng/mL (Less Than 230) H 11/05/18 22:19 ABG pH < 7.00 (7.35-7.45) L* 11/05/18 23:25 ABG pCO2 < 20 mmHg (35-45) L 11/05/18 23:25 ABG pO2 160 mmHg (80-100) H 11/05/18 23:25 ABG HCO3 TNP 11/05/18 23:25 ABG O2 Saturation 98.9 % (94.0-98.0) H 11/05/18 23:25 ABG Base Excess TNP 11/05/18 23:25 VBG pH < 7.00 (7.32-7.43) L 11/05/18 22:20 VBG pCO2 29 mmHg (41-51) L 11/05/18 22:20 VBG pO2 < 38.0 mmHg (35-45) 11/05/18 22:20 VBG HCO3 TNP 11/05/18 22:20 VBG O2 Saturation 56.3 % (70-80) L 11/05/18 22:20 VBG Base Excess TNP 11/05/18 22:20 Sodium 134 mmol/L (135-145) L 11/06/18 14:05 Potassium 2.9 mmol/L (3.5-5.0) L 11/06/18 14:05 Chloride 116 mmol/L (101-111) H 11/06/18 14:05 Carbon Dioxide 9 mmol/L (22-32) L* 11/06/18 14:05 Anion Gap 9 mmol/L (2-11) 11/06/18 14:05 BUN 11 mg/dL (6-24) 11/06/18 14:05 Creatinine 1.04 mg/dL (0.51-0.95) H 11/06/18 14:05 Est GFR ( Amer) 76.9 (>60) 11/06/18 14:05 Est GFR (Non-Af Amer) 63.6 (>60) 11/06/18 14:05 BUN/Creatinine Ratio 10.6 (8-20) 11/06/18 14:05 Glucose 320 mg/dL (70-100) H 11/06/18 14:05 POC Glucose (mg/dL) 261 mg/dL (70-100) H 11/06/18 16:32 Hemoglobin A1c 13.3 % (4.0-5.6) H 11/06/18 02:39 Lactic Acid 0.6 mmol/L (0.5-2.0) 11/05/18 22:20 Calcium 7.8 mg/dL (8.6-10.3) L 11/06/18 14:05 Phosphorus 2.6 mg/dL (2.5-5.0) 11/06/18 14:05 Magnesium 2.1 mg/dL (1.9-2.7) 11/05/18 23:14 Total Bilirubin 0.40 mg/dL (0.2-1.0) 11/05/18 22:20 AST 14 U/L (13-39) 11/05/18 23:14 ALT 16 U/L (7-52) 11/05/18 22:20 Alkaline Phosphatase 95 U/L (34-104) 11/05/18 22:20 Troponin I 0.00 ng/mL (<0.04) 11/06/18 06:24 C-Reactive Protein 4.62 mg/L (<8.01) 11/05/18 22:20 Total Protein 8.2 g/dL (6.4-8.9) 11/05/18 22:20 Albumin 5.0 g/dL (3.2-5.2) 11/05/18 22:20 Globulin 3.2 g/dL (2-4) 11/05/18 22:20 Albumin/Globulin Ratio 1.6 (1-3) 11/05/18 22:20 TSH 3.09 mcIU/mL (0.34-5.60) 11/05/18 22:20 Beta HCG, Quant < 0.60 mIU/mL 11/05/18 22:20 Urine Color Straw 11/06/18 04:17 Urine Appearance Clear 11/06/18 04:17 Urine pH 5.0 (5-9) 11/06/18 04:17 Ur Specific [place] 1.010 (1.010-1.030) 11/06/18 04:17 Urine Protein 1+(30 mg/dl) (Negative) A 11/06/18 04:17 Urine Ketones 2+ (Negative) A 11/06/18 04:17 Urine Blood 2+ (Negative) A 11/06/18 04:17 Urine Nitrate Negative (Negative) 11/06/18 04:17 Urine Bilirubin Negative (Negative) 11/06/18 04:17 Urine Urobilinogen Negative (Negative) 11/06/18 04:17 Ur Leukocyte Esterase Negative (Negative) 11/06/18 04:17 Urine WBC (Auto) Absent (Absent) 11/06/18 04:17 Urine RBC (Auto) 3+(>10/hpf) (Absent) A 11/06/18 04:17 Urine Bacteria 1+ (Absent) A 11/06/18 04:17 Urine Glucose 3+(>=500 mg/dl) (Negative) A 11/06/18 04:17
[2018-11-06 15:15] LABS: BUN/Creatinine Ratio 10.6 (8-20); Calcium 7.8 mg/dL (8.6-10.3); EGFR African American 76.9 (>60); EGFR Non-African American 63.6 (>60); Potassium 2.9 mmol/L (3.5-5.0)
[2018-11-06 15:33] LABS: Phosphorus 2.6 mg/dL (2.5-5.0)
[2018-11-06] MEDS ORDERED: POTASSIUM PHOSPHATE IVPB ONE (16:00)
[2018-11-06] MEDS ORDERED: NS IVPB ONE (16:00)
[2018-11-06] MEDS: Potassium Chlor TAB* 10 MEQ TAB.ER PO SCH ×2 (16:26→18:19)
[2018-11-06 19:51] LABS: Calcium 8.1 mg/dL (8.6-10.3); EGFR African American 72.9 (>60); EGFR Non-African American 60.2 (>60); Phosphorus 3.2 mg/dL (2.5-5.0); Potassium 2.9 mmol/L (3.5-5.0)
[2018-11-06] MEDS ORDERED: Potassium Chlor TAB* 20 MEQ TAB.ER PO ONE (20:32)
[2018-11-06] MEDS ORDERED: Insulin GLARGINE(*) 1 UNITS UNIT SUBCUT SCH (21:00)
[2018-11-06] MEDS ORDERED: Lactated Ringers 1000 ML Bag* 1,000 ML IV SCH (21:00)
[2018-11-06] MEDS ORDERED: D5LR 1000 ML BAG* 1,000 ML IV SCH (21:37)
[2018-11-06 23:45] LABS: Potassium 2.9 mmol/L (3.5-5.0)
[2018-11-07] MEDS ORDERED: Dextrose 50% Syringe 50 ML* 25 GM/50 ML SYRINGE IV PUSH PRN ×3 (02:55→11:40)
[2018-11-07] MEDS ORDERED: Insulin LISPRO* 1 UNITS UNIT SUBCUT ONE (02:55)
[2018-11-07] MEDS: Potassium Chlor TAB* 20 MEQ TAB.ER PO SCH ×2 (03:12→08:03)
[2018-11-07 06:32] LABS: BUN/Creatinine Ratio 11.5 (8-20); Calcium 8.5 mg/dL (8.6-10.3); EGFR African American 76.9 (>60); EGFR Non-African American 63.6 (>60); Phosphorus 2.6 mg/dL (2.5-5.0)
[2018-11-07] MEDS ORDERED: Insulin LISPRO* 1 UNITS UNIT SUBCUT SCH ×3 (07:30→09:45)
--- NOTE | 2018-11-07 09:16 | PN ---
Subjective Date of Service: 11/07/18 Interval History: No more SOB. Appetite good. No new c/o. 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 Name 1 Tab)) 1 tab PO DAILY STEFANIE Vital Signs - 8 hr 11/07/18 11/07/18 11/07/18 02:00 02:09 02:56 Temperature Pulse Rate 81 83 Respiratory 12 11 15 Rate Blood Pressure 110/64 (mmHg) O2 Sat by Pulse 97 97 Oximetry 11/07/18 11/07/18 11/07/18 03:00 03:16 04:00 Temperature 98.3 F Pulse Rate 79 86 Respiratory 13 13 Rate Blood Pressure 105/69 115/72 (mmHg) O2 Sat by Pulse 98 97 Oximetry 11/07/18 11/07/18 11/07/18 05:00 05:02 06:00 Temperature Pulse Rate 83 82 79 Respiratory 14 13 14 Rate Blood Pressure 118/63 118/71 (mmHg) O2 Sat by Pulse 97 97 99 Oximetry 11/07/18 11/07/18 11/07/18 06:01 07:00 07:01 Temperature Pulse Rate 82 76 79 Respiratory 18 14 13 Rate Blood Pressure 101/71 (mmHg) O2 Sat by Pulse 99 100 100 Oximetry 11/07/18 11/07/18 08:00 08:01 Temperature Pulse Rate 83 80 Respiratory 15 15 Rate Blood Pressure 97/76 (mmHg) O2 Sat by Pulse 98 98 Oximetry Oxygen Devices in Use Now: None Appearance: Alert, sitting up in ICU bed. In good spirits, looks comfortable. Eyes: No Scleral Icterus Neurological: Alert and Oriented x 3, NL Sensation Result Diagrams: 11/06/18 06:24 11/07/18 05:50 Additional Lab and Data: Laboratory Tests 11/05/18 11/05/18 11/05/18 22:19 22:20 22:20 Absolute Neuts (auto) 9.8 H Absolute Monos (auto) 1.7 H Metamyelocytes % 3 H INR (Anticoag Therapy) 0.77 D-Dimer, Quantitative 336 H ABG pH ABG pCO2 ABG pO2 ABG HCO3 ABG O2 Saturation Lactic Acid Phosphorus Magnesium Troponin I 0.00 C-Reactive Protein 4.62 Total Protein 8.2 Albumin 5.0 TSH 3.09 Beta HCG, Quant < 0.60 11/05/18 11/05/18 11/05/18 22:20 23:14 23:25 Absolute Neuts (auto) Absolute Monos (auto) Metamyelocytes % INR (Anticoag Therapy) D-Dimer, Quantitative ABG pH < 7.00 L* ABG pCO2 < 20 L ABG pO2 160 H ABG HCO3 TNP ABG O2 Saturation 98.9 H Lactic Acid 0.6 Phosphorus 3.3 Magnesium 2.1 Troponin I C-Reactive Protein Total Protein Albumin TSH Beta HCG, Quant Microbiology and Other Data: Microbiology 11/05/18 23:03 Aerobic Blood Culture - Final Blood Venous Not Reportable Anaerobic Blood Culture - Final Not Reportable 11/06/18 02:39 Nasal Screen MRSA (PCR) - Final Nasal Mrsa Not Detected Diagnostic Imaging: CXR: normal EKG Data: sinus tachy Assess/Plan/Problems-Billing Assessment: 28 year old with new onset Type 1 diabetes and DKA. - Patient Problems (1) Diabetic ketoacidosis, type I Current Visit: Yes Status: Acute Priority: High Code(s): E10.10 - TYPE 1 DIABETES MELLITUS WITH KETOACIDOSIS WITHOUT COMA SNOMED Code(s): 836423960 Comment: Diabetic education in progress. Discussed with Dr. Nelsno twice on 11/06. Continue carb counting SS, Lantus. D/C when CO2 > 18. Status and Disposition: inpatient, initially in ICU
[2018-11-07] MEDS: Insulin LISPRO* 1 UNITS UNIT SUBCUT SCH ×4 (13:26→18:06)
[2018-11-07 15:44] VITALS: BP 117/73
[2018-11-07 18:01] LABS: BUN/Creatinine Ratio 15.5 (8-20); Calcium 8.8 mg/dL (8.6-10.3); EGFR African American 83.4 (>60); EGFR Non-African American 68.9 (>60); Potassium 2.9 mmol/L (3.5-5.0)
== END 2018-11-07 19:30 | disposition home or self-care (01) | DRG 420 ==
LOC: ED 21:44 → ICU 11-06 00:39 → MED 11-07 09:16
PROVIDERS: ADMIT Internal Medicine; ATTEND Internal Medicine
DX: E10.10 Type 1 diabetes mellitus with ketoacidosis without coma (principal); D64.9 Anemia, unspecified; E87.6 Hypokalemia; E86.9 Volume depletion, unspecified; R40.2362 Coma scale, best motor response, obeys commands, at arrival to emergency department; R40.2142 Coma scale, eyes open, spontaneous, at arrival to emergency department; R40.2252 Coma scale, best verbal response, oriented, at arrival to emergency department; Z83.3 Family history of diabetes mellitus; Z88.2 Allergy status to sulfonamides; Z72.89 Other problems related to lifestyle; Z82.49 Family history of ischemic heart disease and other diseases of the circulatory system
CPT/HCPCS: 36415; 71045; 80048; 80051; 80053; 81003; 81015; 82803; 83036; 83605; 83735; 84100; 84443; 84484; 84702; 85025; 85379; 85610; 86140; 87040; 87086; 87641; 99285; A9270-GY; J1815; J2765; J3480